=== PATIENT | female | born 1985 | race American Indian/Alaskan Native ===

== ENCOUNTER 2016-11-04 06:37 | Emergency (ER) | payer MEDICAID ==
[2016-11-04] MEDS ORDERED: ZOFRAN ODT PO ONE (06:51)
[2016-11-04 07:08] LABS: Basophils % (Auto) 0.3 % (0.0-1.8); Eosinophils % (Auto) 1.4 % (0.0-4.3); Hematocrit 40.7 % (30.3-42.9); Hemoglobin 13.6 gm/dl (10.1-14.3); Mean Corpuscular HGB Conc 34 % (30-34); Mean Corpuscular Hemoglobin 29 pg (28-32); Mean Corpuscular Volume 88 fl (79-97); Platelet Count 220 K/mm3 (140-440); Red Blood Count 4.63 M/mm3 (3.65-5.03); Red Cell Distribution Width 12.6 % (13.2-15.2); White Blood Count 9.1 K/mm3 (4.5-11.0)
[2016-11-04 07:30] LABS: BUN/Creatinine Ratio 28.33; Blood Urea Nitrogen 17 mg/dL (7-17); Calcium 9.8 mg/dL (8.4-10.2); Carbon Dioxide 27 mmol/L (22-30); Glucose 102 mg/dL (65-100)
[2016-11-04 07:31] LABS: Anion Gap 18 mmol/L; Chloride 103.7 mmol/L (98-107); Potassium 3.6 mmol/L (3.6-5.0); Sodium 145 mmol/L (137-145)
[2016-11-04] MEDS ORDERED: NACL 0.9% 1000 ML 1,000 ML ONE (10:44)
[2016-11-04] MEDS ORDERED: ZOFRAN ONE (10:44)
[2016-11-04 10:57] LABS: Bacteria,Urine 1+ /HPF (Negative); Bilirubin,Urine NEG (Negative); Blood,Urine NEG (Negative); Ketones,Urine 20 mg/dL (Negative); Leukocyte Esterase,Urine NEG (Negative); Mucus,Urine 3+ /HPF; Nitrite,Urine NEG (Negative)
[2016-11-04] MEDS ORDERED: ZOFRAN IV ONE (11:05)
[2016-11-04] MEDS ORDERED: NACL 0.9% 1000 ML 1,000 ML IV ONE (11:05)
[2016-11-04 11:07] VITALS: BP 116/62
--- NOTE | 2016-11-04 13:15 | Emergency Department Report ---
ED General Adult HPI - General Chief complaint: Nausea/Vomiting/Diarrhea Stated complaint: VOMITING Time Seen by Provider: 11/04/16 12:36 Source: patient Mode of arrival: Ambulatory Limitations: No Limitations - History of Present Illness Initial comments: Patient states that she's been here for more than 10 hours when her platelets status considerably shorter. Not withstanding that she is angry and confrontational when I ask her about her history. She is very guarded and not giving much information. She states that she's been having pain involving her entire back every 2 or 3 days for quite some time. He does not have a primary care physician. She complains of nausea and vomiting. Apparently she vomited at triage initially but not since. She denies abdominal pain to me. She denies fever or chills. She denies any respiratory symptoms. He's had no signs of GI bleeding. When asked about her back pain she is very hesitant to tell me where it is located. Then under duress, she tells me and points to her entire back from shoulders to buttocks without localizing it further. She is angry and basically uncooperative with a history. -: week(s) Location: back Radiation: non-radiation Quality: aching Consistency: intermittent Improves with: none Worsens with: none Associated Symptoms: denies other symptoms Treatments Prior to Arrival: none - Related Data Previous Rx's Medication Instructions Recorded Last Taken Type Ondansetron [Zofran Odt] 4 mg PO Q6H #10 tab.rapdis 11/04/16 Unknown Rx Sulfamethoxazole/Trimethoprim 1 each PO BID #20 tablet 11/04/16 Unknown Rx [Bactrim DS TAB] traMADol [Ultram] 50 mg PO Q6HR PRN #14 tablet 11/04/16 Unknown Rx Allergies Allergy/AdvReac Type Severity Reaction Status Date / Time Penicillins Allergy Shortness Verified 03/02/16 19:04 of Breath ED Review of Systems ROS: Stated complaint: VOMITING Other details as noted in HPI Constitutional: denies: chills, fever Eyes: denies: eye pain, eye discharge, vision change ENT: denies: ear pain, throat pain Respiratory: denies: cough, shortness of breath, wheezing Cardiovascular: denies: chest pain, syncope Endocrine: no symptoms reported Gastrointestinal: nausea, vomiting. denies: abdominal pain Genitourinary: denies: urgency, dysuria Musculoskeletal: back pain. denies: joint swelling Skin: denies: rash, lesions Neurological: denies: headache, weakness, paresthesias ED Past Medical Hx - Past Medical History Previous Medical History?: No - Surgical History Hx Breast Surgery: Yes (PUS IN BREAST LEFT SUCTIONED) - Social History Smoking Status: Current Every Day Smoker Substance Use Type: None - Medications Home Medications: Home Medications Medication Instructions Recorded Confirmed Last Taken Type Ondansetron [Zofran Odt] 4 mg PO Q6H #10 tab.rapdis 11/04/16 Unknown Rx Sulfamethoxazole/Trimethoprim 1 each PO BID #20 tablet 11/04/16 Unknown Rx [Bactrim DS TAB] traMADol [Ultram] 50 mg PO Q6HR PRN #14 tablet 11/04/16 Unknown Rx ED Physical Exam - General Limitations: No Limitations General appearance: alert, in no apparent distress - Head Head exam: Present: atraumatic, normocephalic - Eye Eye exam: Present: normal appearance - ENT ENT exam: Present: mucous membranes moist - Neck Neck exam: Present: normal inspection - Respiratory Respiratory exam: Present: normal lung sounds bilaterally. Absent: respiratory distress - Cardiovascular Cardiovascular Exam: Present: regular rate, normal rhythm. Absent: systolic murmur, diastolic murmur, rubs, gallop - GI/Abdominal GI/Abdominal exam: Present: soft, normal bowel sounds. Absent: distended, tenderness, guarding, rebound, rigid, organomegaly, mass - Extremities Exam Extremities exam: Present: normal inspection - Back Exam Back exam: Present: normal inspection - Neurological Exam Neurological exam: Present: alert, oriented X3, CN II-XII intact. Absent: motor sensory deficit - Psychiatric Psychiatric exam: Present: normal affect, normal mood - Skin Skin exam: Present: warm, dry, intact, normal color. Absent: rash ED Course Vital Signs 11/04/16 11/04/16 11/04/16 06:43 11:06 11:09 Temperature 98.7 F Pulse Rate 56 L 62 Respiratory 16 16 16 Rate Blood Pressure 156/97 Blood Pressure 157/97 116/62 [Left] O2 Sat by Pulse 100 99 99 Oximetry - Reevaluation(s) Reevaluation #1: Patient is given Zofran and IV fluids. Her vomiting resolved. She continued to be angry with nursing because she was not brought back medially from the waiting room. It is clear that she did not meet level II criteria in my opinion. 11/04/16 13:42 ED Medical Decision Making - Lab Data Result diagrams: 11/04/16 06:52 11/04/16 06:52 Laboratory Results - last 24 hr 11/04/16 11/04/16 11/04/16 06:52 06:52 06:52 WBC 9.1 RBC 4.63 Hgb 13.6 Hct 40.7 MCV 88 MCH 29 MCHC 34 RDW 12.6 L Plt Count 220 Lymph % (Auto) 17.0 Rice % (Auto) 5.8 Eos % (Auto) 1.4 Baso % (Auto) 0.3 Lymph # 1.6 Rice # 0.5 Eos # 0.1 Baso # 0.0 Seg Neutrophils % 75.5 H Seg Neutrophils # 6.9 Sodium 145 Potassium 3.6 Chloride 103.7 Carbon Dioxide 27 Anion Gap 18 BUN 17 Creatinine 0.6 L Estimated GFR > 60 BUN/Creatinine Ratio 28.33 Glucose 102 H Calcium 9.8 HCG, Qual Negative Urine Color Urine Turbidity Urine pH Ur Specific [place] Urine Protein Urine Glucose (UA) Urine Ketones Urine Blood Urine Nitrite Urine Bilirubin Urine Urobilinogen Ur Leukocyte Esterase Urine WBC (Auto) Urine RBC (Auto) U Epithel Cells (Auto) Urine Bacteria (Auto) Amorphous Crystals Urine Mucus 11/04/16 Unknown WBC RBC Hgb Hct MCV MCH MCHC RDW Plt Count Lymph % (Auto) Rice % (Auto) Eos % (Auto) Baso % (Auto) Lymph # Rice # Eos # Baso # Seg Neutrophils % Seg Neutrophils # Sodium Potassium Chloride Carbon Dioxide Anion Gap BUN Creatinine Estimated GFR BUN/Creatinine Ratio Glucose Calcium HCG, Qual Urine Color Yellow Urine Turbidity Cloudy Urine pH 8.0 H Ur Specific [place] 1.020 Urine Protein 30 mg/dl Urine Glucose (UA) Neg Urine Ketones 20 Urine Blood Neg Urine Nitrite Neg Urine Bilirubin Neg Urine Urobilinogen 2.0 Ur Leukocyte Esterase Neg Urine WBC (Auto) 13.0 H Urine RBC (Auto) 10.0 U Epithel Cells (Auto) 3.0 Urine Bacteria (Auto) 1+ Amorphous Crystals Few Urine Mucus 3+ Critical care attestation.: If time is entered above; I have spent that time in minutes in the direct care of this critically ill patient, excluding procedure time. ED Disposition Clinical Impression: Vomiting Qualifiers: Vomiting type: unspecified Vomiting Intractability: unspecified Nausea presence : unspecified Qualified Code(s): R11.10 - Vomiting, unspecified UTI (urinary tract infection) Qualifiers: Urinary tract infection type: site unspecified Hematuria presence: without hematuria Qualified Code(s): N39.0 - Urinary tract infection, site not specified Back ache Qualifiers: Back pain location: back pain in unspecified location Chronicity: unspecified Back pain laterality: unspecified Qualified Code(s): M54.9 - Dorsalgia, unspecified Disposition: DC- TO HOME OR SELFCARE Is pt being admited?: No Does the pt Need Aspirin: No Condition: Stable Instructions: Urinary Tract Infection in Women (ED), Back Pain (ED) Additional Instructions: Follow-up with referral physician. Return any acute change or problem. Follow- up on your urine culture in 2-3 days. Prescriptions: Ondansetron [Zofran Odt] 4 mg PO Q6H #10 tab.rapdis Sulfamethoxazole/Trimethoprim [Bactrim DS TAB] 1 each PO BID #20 tablet traMADol [Ultram] 50 mg PO Q6HR PRN #14 tablet PRN Reason: Pain Referrals: PRIMARY CAREMD [Primary Care Provider] - 3-5 Days ANTONY CORNEJO MD [Staff Physician] - 3-5 Days [facility] [Provider Group] - 3-5 Days Time of Disposition: 13:36
== END 2016-11-04 14:17 | disposition home or self-care (01) ==
LOC: ED 06:37
DX: R11.2 Nausea with vomiting, unspecified (principal); N39.0 Urinary tract infection, site not specified; M54.9 Dorsalgia, unspecified; F17.200 Nicotine dependence, unspecified, uncomplicated; Z88.0 Allergy status to penicillin
CPT/HCPCS: 36415; 80048; 81001; 82962; 84703; 85025; 87086; 96361; 96374; 99284; J2405; J7030; Q0162

== ENCOUNTER 2017-04-29 20:47 | Emergency (ER) | payer MEDICAID ==
[2017-04-29 21:00] VITALS: BP 118/80
[2017-04-29] MEDS ORDERED: MARCAINE 0.5% INFILTRATI ONE ×2 (22:02→22:04)
--- NOTE | 2017-04-29 22:10 | Emergency Department Report ---
Abscess Boil HPI - HPI Chief Complaint: Skin/Abscess/Foreign Body Stated Complaint: LEFT BREAST ABSCESS Time Seen by Provider: 04/29/17 21:15 Duration: 2 Days Location: Chest Severity: Mild History: Yes Pain, No Fever, No Purulent Drainage, No Numbness, No Foreign Body , No Previous History, No Insect Bite HPI: This is a 32-year-old female nontoxic, well nourished in appearance, no acute signs of distress presents to the ED with c/o of left breast abscess x2 days. Patient denies any chest pain, shortness of breathe, headache, nausea, vomiting, fever, chills, numbness, tingling, pus or draiange. Patient stated she is UTD with tetanus 2 years ago. Allergies PCN. Denies PMH. Home Medications: Previous Rx's Medication Instructions Recorded Last Taken Type Ondansetron [Zofran Odt] 4 mg PO Q6H #10 tab.rapdis 11/04/16 Unknown Rx Sulfamethoxazole/Trimethoprim 1 each PO BID #20 tablet 11/04/16 Unknown Rx [Bactrim DS TAB] traMADol [Ultram] 50 mg PO Q6HR PRN #14 tablet 11/04/16 Unknown Rx Ibuprofen [Motrin] 600 mg PO Q8H PRN #30 tablet 03/10/17 Unknown Rx Oxycodone HCl/Acetaminophen 1 each PO Q6HR PRN #20 tablet 03/10/17 Unknown Rx [Percocet 10/325 mg] Sulfamethoxazole/Trimethoprim 1 each PO BID #14 tablet 04/29/17 Unknown Rx [Bactrim DS TAB] traMADol [Ultram] 50 mg PO Q6HR PRN #12 tablet 04/29/17 Unknown Rx Allergies/Adverse Reactions: Allergies Allergy/AdvReac Type Severity Reaction Status Date / Time Penicillins Allergy Shortness Verified 03/02/16 19:04 of Breath ED Review of Systems ROS: Stated complaint: LEFT BREAST ABSCESS Other details as noted in HPI Constitutional: denies: chills, fever Eyes: denies: eye pain, eye discharge, vision change ENT: denies: ear pain, throat pain Respiratory: denies: cough, shortness of breath, wheezing Cardiovascular: denies: chest pain, palpitations Endocrine: no symptoms reported Gastrointestinal: denies: abdominal pain, nausea, diarrhea Genitourinary: denies: urgency, dysuria, discharge Musculoskeletal: denies: back pain, joint swelling, arthralgia Skin: denies: rash, lesions Neurological: denies: headache, weakness, paresthesias Psychiatric: denies: anxiety, depression Hematological/Lymphatic: denies: easy bleeding, easy bruising ED Past Medical Hx - Past Medical History Previous Medical History?: No - Surgical History Past Surgical History?: Yes Hx Breast Surgery: Yes (PUS IN BREAST LEFT SUCTIONED) - Social History Smoking Status: Former Smoker Substance Use Type: None - Medications Home Medications: Home Medications Medication Instructions Recorded Confirmed Last Taken Type Ondansetron [Zofran Odt] 4 mg PO Q6H #10 tab.rapdis 11/04/16 Unknown Rx Sulfamethoxazole/Trimethoprim 1 each PO BID #20 tablet 11/04/16 Unknown Rx [Bactrim DS TAB] traMADol [Ultram] 50 mg PO Q6HR PRN #14 tablet 11/04/16 Unknown Rx Ibuprofen [Motrin] 600 mg PO Q8H PRN #30 tablet 03/10/17 Unknown Rx Oxycodone HCl/Acetaminophen 1 each PO Q6HR PRN #20 tablet 03/10/17 Unknown Rx [Percocet 10/325 mg] Sulfamethoxazole/Trimethoprim 1 each PO BID #14 tablet 04/29/17 Unknown Rx [Bactrim DS TAB] traMADol [Ultram] 50 mg PO Q6HR PRN #12 tablet 04/29/17 Unknown Rx ED Abscess Boil Physical Exam - Exam General: Vital signs noted. No distress. Alert and acting appropriately. GENERAL: The patient is a well-developed, well-nourished female in no apparent distress. Patient is alert and acting appropriately for age. Alert and oriented 3, no apparent distress, normal gait, atraumatic. HEENT: Head is normocephalic and atraumatic. PERRL, Extraocular muscles are intact. Pupils are equal, round, and reactive to light and accommodation. Nares appeared normal. Mouth is well hydrated and without lesions. Mucous membranes are moist. Posterior pharynx clear of any exudate or lesions. Mouth is well hydrated and without lesions. Tonsils not erythematous or swollen. Uvula midline. Tongue elevated. Mucous members are moist. Posterior pharynx clear, no exudate or lesions. Patent airways. NECK: Supple. No carotid bruits. No lymphadenopathy or thyromegaly.nontender. No meningitic signs are noted. LUNGS: Clear to auscultation. Non labor breathing. No intercostal retractions. Symmetrical with respiration, no wheezing, no rales, or crackles. HEART: Regular rate and rhythm without murmur, rubs or gallops. No reproducible. S1, S2 present, regular rate and rhythm without murmur, no rubs, no gallops. ABDOMEN: Soft, nontender, and nondistended. Positive bowel sounds. No hepatosplenomegaly was noted. No guarding or rebound tenderness, negative epigastric bruit. Negative psoas sign, negative cummins sign, negative McBurneys sign EXTREMITIES: Without any cyanosis, clubbing, rash, lesions or edema. Peripheral pulses intact. Capillary refill less than 2 seconds. Full range of motion bilaterally. NEUROLOGIC: Cranial nerves II through XII are grossly intact. Alert and oriented x 3. Normal gait. Symmetrical strength and sensation. Reflexes 2+ throughout. Cerebellar testing normal. GCS score of 15. PSYCHIATRIC: Normal affect with no suicidal or homicidal ideations. Size: 1 cm Exam: Yes Normal Neurologic Exam, Yes Normal Circulation, No Tenderness, No Fluctuance, No Surrounding Cellulites/Erythema, No Lymphangitis, No Crepitation , No Heart Murmur Exam: 1 cm abscess with induration and flutance in the left nipple breast region. No pus or drainage noted. No nodular noted. I & D Note - I & D Note I & D Note: Under sterile field, I used Betadine to cleanse the area. I then used 0.5% Marcaine with 25-gauge 5/8 needle to inject area for anesthetic purposes. Total volume injected 1 mL. I then used an 11 blade to make a 1 cm incision. About 2 mL's of purulent drainage has been noted. I then used a hemostat to break the abscess formation. I then used sterile 0.9% normal saline flush to flush the wound with total volume of 40 mL used. A sterile 4 x 4 with tape has been applied as dressing. Bleeding is under control. Patient tolerated the procedure well with no signs of distress noted. ED Course Vital Signs 04/29/17 20:54 Temperature 98.8 F Pulse Rate 102 H Respiratory 18 Rate Blood Pressure 118/80 O2 Sat by Pulse 100 Oximetry - Reevaluation(s) Reevaluation #1: 04/29/17 22:10 Patient is speaking in full sentences with no signs of distress noted. Critical care attestation.: If time is entered above; I have spent that time in minutes in the direct care of this critically ill patient, excluding procedure time. ED Medical Decision Making - Medical Decision Making This is a 32-year-old presents with abscess. Patient is stable and was examined by me. Dr. Hammer has been consulted by patient incision and drainage. Sedimentation rate is performed and patient are well. Therefore before has been placed. Patient is discharged with Ultram and was instructed not to operate any machinery while taking Ultram due to drowsiness. Patient received Bactrim at discharge. Patient was instructed to perform a mammogram and patient was instructed to Follow-up with a primary care doctor in 3-5 days or if symptoms worsen and continue return to emergency room as soon as possible. At time time of discharge, the patient does not seem toxic or ill in appearance. No acute signs of distress noted. Patient agrees to discharge treatment plan of care. No further questions noted by the patient. ED Disposition Clinical Impression: Abscess Disposition: DC-01 TO HOME OR SELFCARE Is pt being admited?: No Does the pt Need Aspirin: No Condition: Stable Instructions: Abscess (ED), Incision and Drainage (ED), Sulfamethoxazole/ Trimethoprim (By mouth), Tramadol (By mouth) Additional Instructions: Follow-up with a primary care doctor in 3-5 days for a possible mammogram or if symptoms worsen and continue return to emergency room as soon as possible. Prescriptions: Sulfamethoxazole/Trimethoprim [Bactrim DS TAB] 1 each PO BID #14 tablet traMADol [Ultram] 50 mg PO Q6HR PRN #12 tablet PRN Reason: Pain Referrals: DEMETRI ALVAREZ MD [Primary Care Provider] - 3-5 Days SUHAS NIEVES MD [Staff Physician] - 3-5 Days [facility] [Outside] - 3-5 Days [facility] [Outside] - 3-5 Days Forms: Work/School Release Form(ED)
== END 2017-04-29 22:45 | disposition home or self-care (01) ==
LOC: ED 20:47
DX: N61.1 Abscess of the breast and nipple (principal); Z87.891 Personal history of nicotine dependence; Z98.890 Other specified postprocedural states; Z88.0 Allergy status to penicillin
CPT/HCPCS: 81025

== ENCOUNTER 2017-11-17 10:58 | Emergency (ER) | payer MEDICAID ==
[2017-11-17 11:15] VITALS: BP 136/67
[2017-11-17 12:19] LABS: Bilirubin,Urine NEG (Negative); Blood,Urine NEG (Negative); Color,Urine Yellow (Yellow); Mucus,Urine 1+ /HPF; Protein,Urine <15 mg/dL mg/dL (Negative); Urobilinogen,Urine < 2.0 mg/dL (<2.0)
[2017-11-17 12:23] LABS: HCG Qualitative,Urine Negative (Negative)
--- NOTE | 2017-11-17 12:46 | Emergency Department Report ---
ED Abdominal Pain HPI - General Chief Complaint: Abdominal Pain Stated Complaint: ABDOMINAL PAIN Time Seen by Provider: 11/17/17 12:34 Source: patient Mode of arrival: Ambulatory Limitations: No Limitations - History of Present Illness Initial Comments: Patient is a 32-year-old femalein the past no history of presenting with abdominal burning in the epigastrium down through the umbilicus. Patient states this began last night she vomited twice. Patient this morning had an episode of diarrhea as well. Patient's last meal was Abad[employer]. Patient denies any alcohol consumption. Patient states has been no fever chills cough cold congestion at this time. Severity scale (0 -10): 6 - Related Data Previous Rx's Medication Instructions Recorded Last Taken Type Ondansetron [Zofran Odt] 4 mg PO Q6H #10 tab.rapdis 11/04/16 Unknown Rx Sulfamethoxazole/Trimethoprim 1 each PO BID #20 tablet 11/04/16 Unknown Rx [Bactrim DS TAB] traMADol [Ultram] 50 mg PO Q6HR PRN #14 tablet 11/04/16 Unknown Rx Ibuprofen [Motrin] 600 mg PO Q8H PRN #30 tablet 03/10/17 Unknown Rx Oxycodone HCl/Acetaminophen 1 each PO Q6HR PRN #20 tablet 03/10/17 Unknown Rx [Percocet 10/325 mg] Sulfamethoxazole/Trimethoprim 1 each PO BID #14 tablet 04/29/17 Unknown Rx [Bactrim DS TAB] traMADol [Ultram] 50 mg PO Q6HR PRN #12 tablet 04/29/17 Unknown Rx Dicyclomine [Bentyl] 10 mg PO QID #12 capsule 11/17/17 Unknown Rx Ondansetron [Zofran Odt] 4 mg PO Q8HR PRN #10 tab.rapdis 11/17/17 Unknown Rx traMADol [Ultram] 50 mg PO Q6HR PRN #10 tablet 11/17/17 Unknown Rx Allergies Allergy/AdvReac Type Severity Reaction Status Date / Time Penicillins Allergy Shortness Verified 03/02/16 19:04 of Breath ED Review of Systems ROS: Stated complaint: ABDOMINAL PAIN Other details as noted in HPI Comment: All other systems reviewed and negative ED Past Medical Hx - Past Medical History Previous Medical History?: No - Surgical History Hx Breast Surgery: Yes (PUS IN BREAST LEFT SUCTIONED) - Social History Smoking Status: Current Every Day Smoker Substance Use Type: None - Medications Home Medications: Home Medications Medication Instructions Recorded Confirmed Last Taken Type Ondansetron [Zofran Odt] 4 mg PO Q6H #10 tab.rapdis 11/04/16 Unknown Rx Sulfamethoxazole/Trimethoprim 1 each PO BID #20 tablet 11/04/16 Unknown Rx [Bactrim DS TAB] traMADol [Ultram] 50 mg PO Q6HR PRN #14 tablet 11/04/16 Unknown Rx Ibuprofen [Motrin] 600 mg PO Q8H PRN #30 tablet 03/10/17 Unknown Rx Oxycodone HCl/Acetaminophen 1 each PO Q6HR PRN #20 tablet 03/10/17 Unknown Rx [Percocet 10/325 mg] Sulfamethoxazole/Trimethoprim 1 each PO BID #14 tablet 04/29/17 Unknown Rx [Bactrim DS TAB] traMADol [Ultram] 50 mg PO Q6HR PRN #12 tablet 04/29/17 Unknown Rx Dicyclomine [Bentyl] 10 mg PO QID #12 capsule 11/17/17 Unknown Rx Ondansetron [Zofran Odt] 4 mg PO Q8HR PRN #10 tab.rapdis 11/17/17 Unknown Rx traMADol [Ultram] 50 mg PO Q6HR PRN #10 tablet 11/17/17 Unknown Rx ED Physical Exam - General Limitations: No Limitations General appearance: alert, in no apparent distress - Head Head exam: Present: atraumatic, normocephalic - Eye Eye exam: Present: normal appearance - ENT ENT exam: Present: mucous membranes moist - Neck Neck exam: Present: normal inspection - Respiratory Respiratory exam: Present: normal lung sounds bilaterally. Absent: respiratory distress, wheezes, rales, rhonchi - Cardiovascular Cardiovascular Exam: Present: regular rate, normal rhythm. Absent: systolic murmur, diastolic murmur, rubs, gallop - GI/Abdominal GI/Abdominal exam: Present: soft, tenderness (patient has some mild discomfort in epigastrium), normal bowel sounds. Absent: distended, guarding, rebound - Extremities Exam Extremities exam: Present: normal inspection - Back Exam Back exam: Present: normal inspection - Neurological Exam Neurological exam: Present: alert, oriented X3 - Psychiatric Psychiatric exam: Present: normal affect, normal mood - Skin Skin exam: Present: warm, dry, intact, normal color. Absent: rash ED Course Vital Signs 11/17/17 11:11 Temperature 98.5 F Pulse Rate 59 L Respiratory 18 Rate Blood Pressure 136/67 O2 Sat by Pulse 100 Oximetry ED Medical Decision Making - Lab Data Lab Results 11/17/17 Range/Units 11:22 Urine Color Yellow (Yellow) Urine Turbidity Clear (Clear) Urine pH 6.0 (5.0-7.0) Ur Specific [place] 1.026 (1.003-1.030) Urine Protein <15 mg/dl (Negative) mg/dL Urine Glucose (UA) Neg (Negative) mg/dL Urine Ketones Neg (Negative) mg/dL Urine Blood Neg (Negative) Urine Nitrite Neg (Negative) Urine Bilirubin Neg (Negative) Urine Urobilinogen < 2.0 (<2.0) mg/dL Ur Leukocyte Esterase Neg (Negative) Urine WBC (Auto) 1.0 (0.0-6.0) /HPF Urine RBC (Auto) 1.0 (0.0-6.0) /HPF U Epithel Cells (Auto) 1.0 (0-13.0) /HPF Urine Mucus 1+ /HPF Urine HCG, Qual Negative (Negative) - Medical Decision Making Patient has some mild epigastric discomfort only. Is no rebound no acute abdomen. Patient is not at this time. Patient has normal vital signs. Patient's presented with mild gastroenteritis type symptoms patient will be given meds for symptomatic relief and be discharged home. Critical care attestation.: If time is entered above; I have spent that time in minutes in the direct care of this critically ill patient, excluding procedure time. ED Disposition Clinical Impression: Gastroenteritis Disposition: DC-01 TO HOME OR SELFCARE Is pt being admited?: No Does the pt Need Aspirin: No Condition: Stable Instructions: Gastroenteritis (ED) Referrals: PRIMARY CARE, [Primary Care Provider] - 3-5 Days
== END 2017-11-17 12:52 | disposition home or self-care (01) ==
LOC: ED 10:58
DX: K52.9 Noninfective gastroenteritis and colitis, unspecified (principal); Z88.0 Allergy status to penicillin; F17.200 Nicotine dependence, unspecified, uncomplicated
CPT/HCPCS: 81001; 81025; 99283

== ENCOUNTER 2018-01-30 13:03 | Emergency (ER) | payer MEDICAID ==
[2018-01-30 13:14] VITALS: BP 152/71
[2018-01-30] MEDS ORDERED: TYLENOL PO ONE (13:35)
[2018-01-30 14:01] LABS: Basophils % (Auto) 0.3 % (0.0-1.8); Eosinophils % (Auto) 0.3 % (0.0-4.3); Hematocrit 31.8 % (30.3-42.9); Hemoglobin 10.8 gm/dl (10.1-14.3); Lymphocytes # (Auto) 1.4 K/mm3 (1.2-5.4); Lymphocytes % (Auto) 19.8 % (13.4-35.0); Mean Corpuscular HGB Conc 34 % (30-34); Mean Corpuscular Hemoglobin 30 pg (28-32); Mean Corpuscular Volume 87 fl (79-97); Monocytes # (Auto) 0.5 K/mm3 (0.0-0.8); Monocytes % (Auto) 7.4 % (0.0-7.3); Platelet Count 224 K/mm3 (140-440); Red Blood Count 3.65 M/mm3 (3.65-5.03); Red Cell Distribution Width 12.6 % (13.2-15.2)
--- NOTE | 2018-01-30 14:03 | Emergency Department Report ---
ED HPI - General Chief complaint: Vaginal Bleeding Stated complaint: 9WKS /BLEEDING Time Seen by Provider: 01/30/18 13:33 Source: patient Mode of arrival: Ambulatory Limitations: No Limitations - History of Present Illness Initial comments: This is a 32-year-old female nontoxic, well nourished in appearance, no acute signs of distress presents to the ED with c/o of vaginal bleeding and pelvic pain. Patient stated that this morning she developed vaginal bleedig. Patient denies any abdominal pain. Patient denies any vaginal discharge or foul odor. Patient denies any nausea, vomiting, chest pain, shortness of breathe , fever, chills, headache, stiff neck, numbness, tingling. Patient denies any urinary symptoms. Patient stated allergies to PCN. Patient stated is about 9 weeks . MD Complaint: abdominal pain, vaginal bleeding -: This morning Location: pelvis Radiation: none Severity: mild Severity scale (0 -10): 3 Quality: cramping, aching Consistency: constant Improves with: none Worsens with: none Associated symptoms: vaginal bleeding. denies: nausea/vomiting, vaginal discharge, abdominal pain, dysuria, headache, vision changes, malaise, dysparuenia, rash, seizure, shortness of breath, syncope, weakness Vaginal bleeding: light :: Yes Number of weeks : 9 Pre-benito care: none - Related Data Previous Rx's Medication Instructions Recorded Last Taken Type Ondansetron [Zofran Odt] 4 mg PO Q6H #10 tab.rapdis 11/04/16 Unknown Rx Sulfamethoxazole/Trimethoprim 1 each PO BID #20 tablet 11/04/16 Unknown Rx [Bactrim DS TAB] traMADol [Ultram] 50 mg PO Q6HR PRN #14 tablet 11/04/16 Unknown Rx Ibuprofen [Motrin] 600 mg PO Q8H PRN #30 tablet 03/10/17 Unknown Rx Oxycodone HCl/Acetaminophen 1 each PO Q6HR PRN #20 tablet 03/10/17 Unknown Rx [Percocet 10/325 mg] Sulfamethoxazole/Trimethoprim 1 each PO BID #14 tablet 04/29/17 Unknown Rx [Bactrim DS TAB] traMADol [Ultram] 50 mg PO Q6HR PRN #12 tablet 04/29/17 Unknown Rx Dicyclomine [Bentyl] 10 mg PO QID #12 capsule 11/17/17 Unknown Rx Ondansetron [Zofran Odt] 4 mg PO Q8HR PRN #10 tab.rapdis 11/17/17 Unknown Rx traMADol [Ultram] 50 mg PO Q6HR PRN #10 tablet 11/17/17 Unknown Rx Acetaminophen 500 mg PO Q8H PRN #30 tablet 01/30/18 Unknown Rx 21/Iron Fu/Folic Acid 1 each PO DAILY #30 tablet 01/30/18 Unknown Rx [ Complete Caplet] Allergies Allergy/AdvReac Type Severity Reaction Status Date / Time Penicillins Allergy Shortness Verified 03/02/16 19:04 of Breath ED Review of Systems ROS: Stated complaint: 9WKS /BLEEDING Other details as noted in HPI Constitutional: denies: chills, fever Eyes: denies: eye pain, eye discharge, vision change ENT: denies: ear pain, throat pain Respiratory: denies: cough, shortness of breath, wheezing Cardiovascular: denies: chest pain, palpitations Endocrine: no symptoms reported Gastrointestinal: denies: abdominal pain, nausea, diarrhea Genitourinary: abnormal menses. denies: urgency, dysuria, discharge Musculoskeletal: denies: back pain, joint swelling, arthralgia Skin: denies: rash, lesions Neurological: denies: headache, weakness, paresthesias Psychiatric: denies: anxiety, depression Hematological/Lymphatic: denies: easy bleeding, easy bruising ED Past Medical Hx - Past Medical History Previous Medical History?: No - Surgical History Hx Breast Surgery: Yes (PUS IN BREAST LEFT SUCTIONED) - Social History Smoking Status: Never Smoker Substance Use Type: None - Medications Home Medications: Home Medications Medication Instructions Recorded Confirmed Last Taken Type Ondansetron [Zofran Odt] 4 mg PO Q6H #10 tab.rapdis 11/04/16 Unknown Rx Sulfamethoxazole/Trimethoprim 1 each PO BID #20 tablet 11/04/16 Unknown Rx [Bactrim DS TAB] traMADol [Ultram] 50 mg PO Q6HR PRN #14 tablet 11/04/16 Unknown Rx Ibuprofen [Motrin] 600 mg PO Q8H PRN #30 tablet 03/10/17 Unknown Rx Oxycodone HCl/Acetaminophen 1 each PO Q6HR PRN #20 tablet 03/10/17 Unknown Rx [Percocet 10/325 mg] Sulfamethoxazole/Trimethoprim 1 each PO BID #14 tablet 04/29/17 Unknown Rx [Bactrim DS TAB] traMADol [Ultram] 50 mg PO Q6HR PRN #12 tablet 04/29/17 Unknown Rx Dicyclomine [Bentyl] 10 mg PO QID #12 capsule 11/17/17 Unknown Rx Ondansetron [Zofran Odt] 4 mg PO Q8HR PRN #10 tab.rapdis 11/17/17 Unknown Rx traMADol [Ultram] 50 mg PO Q6HR PRN #10 tablet 11/17/17 Unknown Rx Acetaminophen 500 mg PO Q8H PRN #30 tablet 01/30/18 Unknown Rx 21/Iron Fu/Folic Acid 1 each PO DAILY #30 tablet 01/30/18 Unknown Rx [ Complete Caplet] ED Physical Exam - General Limitations: No Limitations General appearance: alert, in no apparent distress - Head Head exam: Present: atraumatic, normocephalic - Eye Eye exam: Present: normal appearance - ENT ENT exam: Present: mucous membranes moist - Neck Neck exam: Present: normal inspection, full ROM. Absent: tenderness, meningismus, lymphadenopathy - Respiratory Respiratory exam: Present: normal lung sounds bilaterally. Absent: respiratory distress, wheezes, rales, rhonchi, stridor, chest wall tenderness, accessory muscle use, decreased breath sounds, prolonged expiratory - Cardiovascular Cardiovascular Exam: Present: regular rate, normal rhythm, normal heart sounds. Absent: bradycardia, tachycardia, irregular rhythm, systolic murmur, diastolic murmur, rubs, gallop - GI/Abdominal GI/Abdominal exam: Present: soft, normal bowel sounds. Absent: distended, tenderness, guarding, rebound, rigid, diminished bowel sounds - Extremities Exam Extremities exam: Present: normal inspection, full ROM, normal capillary refill. Absent: tenderness - Back Exam Back exam: Present: normal inspection, full ROM. Absent: tenderness, CVA tenderness (R), CVA tenderness (L), muscle spasm, paraspinal tenderness, vertebral tenderness, rash noted - Neurological Exam Neurological exam: Present: alert, oriented X3, normal gait - Psychiatric Psychiatric exam: Present: normal affect, normal mood - Skin Skin exam: Present: warm, dry, intact, normal color. Absent: rash ED Course Vital Signs 01/30/18 13:12 Temperature 98.6 F Pulse Rate 104 H Respiratory 18 Rate Blood Pressure 152/71 O2 Sat by Pulse 100 Oximetry - Reevaluation(s) Reevaluation #1: 01/30/18 14:02 Patient is speaking in full sentences with no signs of distress noted. ED Medical Decision Making - Lab Data Result diagrams: 01/30/18 13:39 - Medical Decision Making This is a 32-year-old female presents with threatened miscarriage. Patient is stable and was examined by me. Normal abdominal exam. US OB obtained and dictated by the radiologist. Quantative serum test obtained. Patient notified of the US report with no questions noted by the patient. Labs within normal limits. Patient was referred to Follow-up with a MEDICAL INFORMATION OFFICER in 3-5 days or if symptoms worsen and continue return to emergency room as soon as possible. At time of discharge, the patient does not seem toxic or ill in appearance. No acute signs of distress noted. Patient agrees to discharge treatment plan of care. No further questions noted by the patient. Critical care attestation.: If time is entered above; I have spent that time in minutes in the direct care of this critically ill patient, excluding procedure time. ED Disposition Clinical Impression: Threatened miscarriage Disposition: DC-01 TO HOME OR SELFCARE Is pt being admited?: No Does the pt Need Aspirin: No Condition: Stable Instructions: Threatened Miscarriage (ED) Additional Instructions: Follow-up with a MEDICAL INFORMATION OFFICER doctor in 3-5 days or if symptoms worsen and continue return to emergency room as soon as possible. Prescriptions: Acetaminophen 500 mg PO Q8H PRN #30 tablet PRN Reason: Pain, Moderate (4-6) 21/Iron Fu/Folic Acid [ Complete Caplet] 1 each PO DAILY #30 tablet Referrals: PRIMARY CAREMD [Primary Care Provider] - 3-5 Days JACKSON ZAVALETA MD [Staff Physician] - 3-5 Days [facility] [Provider Group] - 3-5 Days [facility] [Outside] - 3-5 Days Forms: Work/School Release Form(ED)
--- NOTE | 2018-01-30 16:08 | Ultrasound Report ---
FINAL REPORT EXAM: US OB < = 14 WEEKS FETUS HISTORY: pelvic pain and bleeding COMPARISON: None. TECHNIQUE: Transabdominal obstetric imaging of the pelvis was performed FINDINGS: The uterus measures 8.8 x 6.7 x 10.8 centimeters and is anteverted. There is a single live intrauterine with heart rate of 170 beats per minute. There is a pole and normal appearing yolk sac. [place]-rump length corresponds to a gestational age of 9 weeks, 0 days, with an estimated date of delivery of 09/04/2018. The right ovary measures 2.2 x 0.9 x 3 centimeters and is normal in morphology. There is normal flow to the right ovary on color Doppler imaging. The left ovary measures 3.2 x 2 x 2.7 centimeters and is normal in morphology. There is normal flow to the left ovary on color Doppler imaging. IMPRESSION: Single live intrauterine with gestational age of 9 weeks, 0 days, with estimated date of delivery of 09/04/2018.
--- NOTE | 2018-01-30 16:15 | Ultrasound Report ---
FINAL REPORT EXAM: US OB TRANSVAGINAL HISTORY: pelvic pain and bleeding COMPARISON: None. TECHNIQUE: Transvaginal obstetric imaging was performed. FINDINGS: The uterus measures 8.8 x 6.7 x 10.8 centimeters and is anteverted. There is a single live intrauterine with heart rate of 170 beats per minute. There is a pole and normal appearing yolk sac. [place]-rump length corresponds to a gestational age of 9 weeks, 0 days, with an estimated date of delivery of 09/04/2018. The right ovary measures 2.2 x 0.9 x 3 centimeters and is normal in morphology. There is normal flow to the right ovary on color Doppler imaging. The left ovary measures 3.2 x 2 x 2.7 centimeters and is normal in morphology. There is normal flow to the left ovary on color Doppler imaging. IMPRESSION: Single live intrauterine with gestational age of 9 weeks, 0 days, with estimated date of delivery of 09/04/2018.
== END 2018-01-30 16:33 | disposition home or self-care (01) ==
LOC: ED 13:03
DX: O20.0 Threatened abortion (principal); Z3A.09 9 weeks gestation of pregnancy; Z88.0 Allergy status to penicillin
CPT/HCPCS: 36415; 76801; 76817; 84702; 85025; 86850; 86900; 86901; 99284

== ENCOUNTER 2018-06-09 16:19 | Outpatient (CLI) | payer MEDICAID ==
[2018-06-09] MEDS ORDERED: LACTATED RINGERS 500 ML IV ONE (17:01)
[2018-06-09] MEDS ORDERED: LACTATED RINGERS 1,000 ML ONE (17:06)
[2018-06-09 18:10] LABS: Hemoglobin 10.2 gm/dl (10.1-14.3); Mean Corpuscular HGB Conc 34 % (30-34); Mean Corpuscular Volume 92 fl (79-97); Platelet Count 192 K/mm3 (140-440); Red Blood Count 3.26 M/mm3 (3.65-5.03); Red Cell Distribution Width 12.9 % (13.2-15.2)
[2018-06-09] MEDS ORDERED: ZOFRAN IV ONE (18:18)
[2018-06-09] MEDS ORDERED: TYLENOL PO ONE (18:19)
[2018-06-09 18:54] LABS: Alanine Aminotransferase 11 units/L (7-56); BUN/Creatinine Ratio 40; Blood Urea Nitrogen 12 mg/dL (7-17); Hemolysis Index 11
[2018-06-09 19:42] VITALS: BP 103/56
[2018-06-09 20:11] LABS: Bacteria,Urine 1+ /HPF (Negative); Bilirubin,Urine NEG (Negative); Blood,Urine NEG (Negative); Color,Urine Yellow (Yellow); Mucus,Urine 1+ /HPF; Protein,Urine <15 mg/dL mg/dL (Negative)
== END 2018-06-09 21:10 | disposition home or self-care (01) ==
LOC: TRG 16:19
PROVIDERS: ATTEND Obstetrics & Gynecology
DX: O47.02 False labor before 37 completed weeks of gestation, second trimester (principal); Z3A.27 27 weeks gestation of pregnancy
CPT/HCPCS: 36415; 59025; 80053; 81001; 85027; 87400; 96374; J2405; J7120; 96360; 96361

== ENCOUNTER 2018-07-05 18:33 | Outpatient (CLI) | payer MEDICAID ==
[2018-07-05 19:13] VITALS: BP 105/65
[2018-07-05] MEDS ORDERED: LACTATED RINGERS 500 ML IV ONE (19:14)
[2018-07-05] MEDS ORDERED: TYLENOL PO STA (20:06)
== END 2018-07-05 23:14 | disposition home or self-care (01) ==
LOC: TRG 18:33 → LD 18:34 → TRG 23:14
PROVIDERS: ATTEND Obstetrics & Gynecology
DX: O47.03 False labor before 37 completed weeks of gestation, third trimester (principal); O13.3 Gestational [pregnancy-induced] hypertension without significant proteinuria, third trimester; Z3A.31 31 weeks gestation of pregnancy
CPT/HCPCS: 59025

== ENCOUNTER 2018-11-19 01:25 | Emergency (ER) | payer MEDICAID ==
[2018-11-19 01:34] VITALS: BP 148/110
[2018-11-19 02:04] LABS: Basophils % (Auto) 0.2 % (0.0-1.8); Eosinophils # (Auto) 0.1 K/mm3 (0.0-0.4); Eosinophils % (Auto) 0.6 % (0.0-4.3); Hematocrit 38.2 % (30.3-42.9); Hemoglobin 12.6 gm/dl (10.1-14.3); Lymphocytes # (Auto) 1.3 K/mm3 (1.2-5.4); Lymphocytes % (Auto) 8.5 % (13.4-35.0); Mean Corpuscular HGB Conc 33 % (30-34); Mean Corpuscular Volume 88 fl (79-97); Monocytes # (Auto) 0.6 K/mm3 (0.0-0.8); Monocytes % (Auto) 3.7 % (0.0-7.3); Platelet Count 314 K/mm3 (140-440); Red Blood Count 4.33 M/mm3 (3.65-5.03); Red Cell Distribution Width 13.5 % (13.2-15.2)
[2018-11-19 02:27] LABS: Alanine Aminotransferase 18 units/L (7-56); BUN/Creatinine Ratio 30; Blood Urea Nitrogen 21 mg/dL (7-17); Calcium 10.4 mg/dL (8.4-10.2); Hemolysis Index 64
[2018-11-19] MEDS ORDERED: MORPHINE IV ONE (02:54)
[2018-11-19] MEDS ORDERED: ZOFRAN IV ONE (02:54)
[2018-11-19] MEDS ORDERED: NACL 0.9% 1000 ML 1,000 ML IV ONE (03:15)
--- NOTE | 2018-11-19 03:26 | Emergency Department Report ---
ED Female HPI - General Chief complaint: Abdominal Pain Stated complaint: EMESIS/RT SIDE PAIN Source: patient Mode of arrival: Ambulatory Limitations: No Limitations - History of Present Illness Initial comments: 33-year-old [place] female presents to the emergency room for right flank and back pain that travels to the front abdomen to the pelvic. Patient reported vocal cord this from sleep. She admits to nausea and vomiting a sharp pain. She minutes painful urination. Patient reports that she is breast-feeding delivered on 08/12/2018. Patient PREECLAMPSIA and delivered at 27 weeks. Patient is . MD Complaint: dysuria -: This morning Severity scale (0 -10): 10 Quality: cramping, sharp Consistency: constant Improves with: none Worsens with: urination Are you Now?: No - Related Data Previous Rx's Medication Instructions Recorded Last Taken Type Ondansetron [Zofran Odt] 4 mg PO Q6H #10 tab.rapdis 11/04/16 Unknown Rx Sulfamethoxazole/Trimethoprim 1 each PO BID #20 tablet 11/04/16 Unknown Rx [Bactrim DS TAB] traMADol [Ultram] 50 mg PO Q6HR PRN #14 tablet 11/04/16 Unknown Rx Ibuprofen [Motrin] 600 mg PO Q8H PRN #30 tablet 03/10/17 Unknown Rx Oxycodone HCl/Acetaminophen 1 each PO Q6HR PRN #20 tablet 03/10/17 Unknown Rx [Percocet 10/325 mg] Sulfamethoxazole/Trimethoprim 1 each PO BID #14 tablet 04/29/17 Unknown Rx [Bactrim DS TAB] traMADol [Ultram] 50 mg PO Q6HR PRN #12 tablet 04/29/17 Unknown Rx Dicyclomine [Bentyl] 10 mg PO QID #12 capsule 11/17/17 Unknown Rx Ondansetron [Zofran Odt] 4 mg PO Q8HR PRN #10 tab.rapdis 11/17/17 Unknown Rx traMADol [Ultram] 50 mg PO Q6HR PRN #10 tablet 11/17/17 Unknown Rx Acetaminophen 500 mg PO Q8H PRN #30 tablet 01/30/18 Unknown Rx 21/Iron Fu/Folic Acid 1 each PO DAILY #30 tablet 01/30/18 Unknown Rx [ Complete Caplet] HYDROcodone/APAP 7.5-325 [[place] 1 each PO Q6HR PRN #12 tablet 11/19/18 Unknown Rx 7.5/325] Ibuprofen [Motrin 600 MG tab] 600 mg PO Q8H PRN #30 tablet 11/19/18 Unknown Rx Tamsulosin [Flomax] 0.4 mg PO QDAY #5 cap 11/19/18 Unknown Rx levoFLOXacin [Levaquin TAB] 500 mg PO QDAY #7 tablet 11/19/18 Unknown Rx Allergies Allergy/AdvReac Type Severity Reaction Status Date / Time Penicillins Allergy Severe Shortness Verified 06/09/18 17:00 of Breath ED Review of Systems ROS: Stated complaint: EMESIS/RT SIDE PAIN Other details as noted in HPI Comment: All other systems reviewed and negative ED Past Medical Hx - Past Medical History Previous Medical History?: No Hx Hypertension: No Hx Diabetes: No Hx Deep Vein Thrombosis: No Hx Renal Disease: No Hx Sickle Cell Disease: No Hx Seizures: No Hx Asthma: No Hx HIV: No - Surgical History Past Surgical History?: Yes Hx Breast Surgery: Yes (PUS IN BREAST LEFT SUCTIONED) - Social History Smoking Status: Current Every Day Smoker Substance Use Type: None - Medications Home Medications: Home Medications Medication Instructions Recorded Confirmed Last Taken Type Ondansetron [Zofran Odt] 4 mg PO Q6H #10 tab.rapdis 11/04/16 Unknown Rx Sulfamethoxazole/Trimethoprim 1 each PO BID #20 tablet 11/04/16 Unknown Rx [Bactrim DS TAB] traMADol [Ultram] 50 mg PO Q6HR PRN #14 tablet 11/04/16 Unknown Rx Ibuprofen [Motrin] 600 mg PO Q8H PRN #30 tablet 03/10/17 Unknown Rx Oxycodone HCl/Acetaminophen 1 each PO Q6HR PRN #20 tablet 03/10/17 Unknown Rx [Percocet 10/325 mg] Sulfamethoxazole/Trimethoprim 1 each PO BID #14 tablet 04/29/17 Unknown Rx [Bactrim DS TAB] traMADol [Ultram] 50 mg PO Q6HR PRN #12 tablet 04/29/17 Unknown Rx Dicyclomine [Bentyl] 10 mg PO QID #12 capsule 11/17/17 Unknown Rx Ondansetron [Zofran Odt] 4 mg PO Q8HR PRN #10 tab.rapdis 11/17/17 Unknown Rx traMADol [Ultram] 50 mg PO Q6HR PRN #10 tablet 11/17/17 Unknown Rx Acetaminophen 500 mg PO Q8H PRN #30 tablet 01/30/18 Unknown Rx 21/Iron Fu/Folic Acid 1 each PO DAILY #30 tablet 01/30/18 Unknown Rx [ Complete Caplet] HYDROcodone/APAP 7.5-325 [[place] 1 each PO Q6HR PRN #12 tablet 11/19/18 Unknown Rx 7.5/325] Ibuprofen [Motrin 600 MG tab] 600 mg PO Q8H PRN #30 tablet 11/19/18 Unknown Rx Tamsulosin [Flomax] 0.4 mg PO QDAY #5 cap 11/19/18 Unknown Rx levoFLOXacin [Levaquin TAB] 500 mg PO QDAY #7 tablet 11/19/18 Unknown Rx ED Physical Exam - General Limitations: No Limitations General appearance: alert, in no apparent distress - Head Head exam: Present: atraumatic, normocephalic - Eye Eye exam: Present: normal appearance - ENT ENT exam: Present: mucous membranes moist - Neck Neck exam: Present: normal inspection - Respiratory Respiratory exam: Present: normal lung sounds bilaterally. Absent: respiratory distress - Cardiovascular Cardiovascular Exam: Present: regular rate, normal rhythm. Absent: systolic murmur, diastolic murmur, rubs, gallop - GI/Abdominal GI/Abdominal exam: Present: soft, tenderness. Absent: distended - Back Exam Back exam: Present: CVA tenderness (R) - Neurological Exam Neurological exam: Present: alert, oriented X3, normal gait - Psychiatric Psychiatric exam: Present: normal affect, normal mood - Skin Skin exam: Present: warm, dry, intact, normal color. Absent: rash ED Course Vital Signs 11/19/18 01:33 Temperature 97.8 F Pulse Rate 69 Respiratory 18 Rate Blood Pressure 148/110 [Right] O2 Sat by Pulse 99 Oximetry ED Medical Decision Making - Lab Data Result diagrams: 11/19/18 01:37 11/19/18 01:37 - Medical Decision Making 33-year-old female comes in for right flank pain with nausea vomiting abruptly. Patient was given normal saline CT scan labs. The patient had bilateral lower lobe pneumonia cholelithiasis right kidney calculi. Patient be discharged home on Flomax, [place], Levaquin and stretches not to breast-feed until 6 hours after dose as well as ibuprofen. Case is discussed with Dr. Tc Helton. Critical care attestation.: If time is entered above; I have spent that time in minutes in the direct care of this critically ill patient, excluding procedure time. ED Disposition Clinical Impression: Kidney stone on right side, Hydronephrosis Cholelithiasis Qualifiers: Cholangitis acuity: acute Pneumonia Qualifiers: Pneumonia type: due to unspecified organism Laterality: bilateral Lung location: lower lobe of lung Qualified Code(s): J18.1 - Lobar pneumonia, unspecified organism Disposition: TO HOME OR SELFCARE Is pt being admited?: No Does the pt Need Aspirin: No Condition: Stable Instructions: Abdominal Pain (ED), Bacterial Pneumonia (ED), Kidney Stones (ED), How to Strain Your Urine (ED), Flank Pain (ED) Additional Instructions: Take medications as prescribed. Please increase your water intake by 3 L daily complete antibiotics do not operate heavy machinery while taking [place]. Please of early breast-feeding 6 hours after taking the Levaquin. These follow-up with urology as well as her primary care provider I have listed information below fo r your convenience. Prescriptions: Tamsulosin [Flomax] 0.4 mg PO QDAY #5 cap levoFLOXacin [Levaquin TAB] 500 mg PO QDAY #7 tablet Ibuprofen [Motrin 600 MG tab] 600 mg PO Q8H PRN #30 tablet PRN Reason: Pain HYDROcodone/APAP 7.5-325 [[place] 7.5/325] 1 each PO Q6HR PRN #12 tablet PRN Reason: Pain Referrals: VERA ALBERTS MD [Primary Care Provider] - 3-5 Days CHRISTOS SEPULVEDA MD [Staff Physician] - 3-5 Days [facility] [Outside] - 3-5 Days [facility] [Outside] - 3-5 Days [facility] [Outside] - 3-5 Days Forms: Accompanied Note
[2018-11-19 03:52] LABS: Bilirubin,Urine NEG (Negative); Blood,Urine SM (Negative); Color,Urine Yellow (Yellow); Mucus,Urine 3+ /HPF; Urobilinogen,Urine < 2.0 mg/dL (<2.0)
--- NOTE | 2018-11-19 04:44 | Cat Scan Report ---
CT abdomen pelvis w con INDICATION / CLINICAL INFORMATION: abd pain elevated wbc. TECHNIQUE: All CT scans at this location are performed using CT dose reduction for ALARA by means of automated e xposure control. COMPARISON: None available. FINDINGS: Limited lower thoracic images show several areas of patchy opacity in both lower lungs. There are also multiple small noncalcified nodules in both lower lobes measuring in size up to 6 mm. ABDOMEN: Multiple gallstones. The liver spleen and pancreas are normal. Left kidney is normal. There is mild hydronephrosis of the right kidney and dilatation of the right ureter to level of the u reterovesical junction. An obstructing calculus in the right UVJ is identified, measuring 2 to 3 mm. No small bowel distention. Pelvis: The appendix is normal. There are multiple small right ovarian cyst. No dependent fluid collections are identified in the pelvis. Skeletal structures are not remarkable. IMPRESSION: 1. Small obstructing distal right ureteral calculus. 2. Cholelithiasis. 3. Patchy opacities in both lower lungs may represent acute pneumonia. 4. Incidental pulmonary nodularity measuring in size up to 6 mm. INCIDENTAL PULMONARY NODULE RECOMMENDATION Note These recommendations do not apply to lung cancer screening, patients with immunosuppression, o r patients with known primary cancer. Note Newly detected indeterminate nodule in persons 35 years of age or older. Persons under the age of 35 should not receive follow-up unless there is a known primary cancer. Low Risk Patient -- minimal or absent history of smoking and of ot High Risk Patient -- history of sm oking or of other known risk factors. Nodule dimensions are average of long and short axes, rounded to the nearest millimeter. Based on 2017 Fleischner Society Guidelines found in Radiology 2017 284:228-243. [email or web address] Signer Name: Lion Lebron MD Signed: 11/19/2018 4:39 AM Workstation Name: [email or web address]
== END 2018-11-19 04:15 | disposition home or self-care (01) ==
LOC: ED 01:25
DX: N13.2 Hydronephrosis with renal and ureteral calculous obstruction (principal); K80.20 Calculus of gallbladder without cholecystitis without obstruction; J18.9 Pneumonia, unspecified organism; F17.200 Nicotine dependence, unspecified, uncomplicated; Z79.899 Other long term (current) drug therapy
CPT/HCPCS: 36415; 74177; 80053; 81001; 83690; 84703; 85025; 96361; 96374; 96375; 99284; J2270; J2405; J7030; Q9967